=== PATIENT | female | born 1995 | race Caucasian/White ===

== ENCOUNTER 2017-07-16 10:54 | Emergency (ER) | payer MEDICAID, SELFPAY ==
[2017-07-16] MEDS ORDERED: Metoclopramide HCl 10 MG/2 ML VIAL ONE (11:44)
[2017-07-16 11:45] LABS: #Lymphocytes 0.4 thou/uL (1.20-3.40); #Monocytes 0.7 thou/uL (0.11-0.59); #Neutrophils 4.3 thou/uL (1.40-6.50); %Basophils 0.5 % (0.0-1.0); %Eosinophils 0.1 % (0.0-10.0); %Lymphocytes 8.2 % (21.0-51.0); %Monocytes 12.1 % (0.0-10.0); %Neutrophils 79.1 % (42.0-75.0); Hemoglobin 14.2 g/dL (12.0-16.0); Mean Corpuscular HGB CONC 34.4 g/dL (32.0-36.0); Mean Corpuscular Hemoglobin 30.4 pg (27.0-31.0); Mean Corpuscular Volume 88.3 fl (81.0-99.0); Mean Platelet Volume 8.6 fL (7.4-10.4); Platelet Count 204 thou/uL (130-400); RBC Distribution Width 11.5 % (11.5-14.5); Red Blood Cell (RBC) Count 4.68 mill/uL (4.20-5.40); White Blood Cell (WBC) Count 5.4 thou/uL (4.8-10.8)
[2017-07-16 11:46] LABS: Bilirubin Negative (Negative); Blood, Urine Trace (Negative); Clarity Hazy (Clear); Glucose, Urine (Dipstick) Negative (Negative); Leukocyte Negative (Negative); Nitrite Negative (Negative); Protein, Urine (Dipstick) 30 mg/dL (Neg-Trace); Specific Gravity, Urine 1.028 (1.002-1.036); Urobilinogen 0.2 mg/dL (0.2-1.0)
[2017-07-16 11:48] LABS: Bacteria/HPF 2+ HPF (None Seen); RBC/HPF 0-3 HPF (0-3); WBC/HPF None Seen HPF (0-3)
[2017-07-16 12:00] LABS: ALT (SGPT) 12 U/L (8-55); AST (SGOT) 17 U/L (5-34); Albumin 4.4 g/dL (3.5-5.0); Alkaline Phosphatase 52 U/L (40-150); Anion Gap 17 mmol/L (10-20); BUN (Urea Nitrogen) 10 mg/dL (7.0-18.7); Bilirubin, Total 0.3 mg/dL (0.2-1.2); Calc. Creatinine Clearance 0 mL/min (70-130); Calcium 9.8 mg/dL (7.8-10.44); Carbon Dioxide 23 mmol/L (22-29); Chloride 100 mmol/L (98-107); Estimated GFR-MDRD Greater than 90; Globulin 3.2 g/dL (2.4-3.5); Glucose 127 mg/dL (70-105); Lipase 18 U/L (8-78); Potassium 3.5 mmol/L (3.5-5.1); Protein, Total 7.6 g/dL (6.0-8.3); Sodium 136 mmol/L (136-145)
--- NOTE | 2017-07-16 14:13 | ULT ---
OB ULTRASOUND: Date: 07/16/17 HISTORY: Evaluation for ectopic. FINDINGS: Real-time images of the pelvis show a single viable intrauterine . heart rate is 163 b eats/minute. The crown-rump length measurement is 2.1 cm, corresponding to 8 weeks/5 days. Gestationa l sac measurement is 3.8 cm, corresponding to 9 weeks/1 day. I do not see any definite signs of any s ubchorionic bleed. Placental position is difficult to assess at this stage. The right and left adnexal regions are unremarkable. DOPPLER EVALUATION WITH SPECTRAL ANALYSIS: Normal flow is shown to the adnexa. IMPRESSION: Single viable intrauterine . Measurements corresponding to a gestational age of 9 weeks/0 da ys. Estimated date of delivery is 02/18/18. POS: [facility]
[2017-07-19 22:46] LABS: Chlamydia by PCR Not Detected (NotDetected); GC by PCR Not Detected (NotDetected)
== END 2017-07-16 13:47 | disposition home or self-care (01) ==
LOC: SCSER 10:54
DX: O99.89 Other specified diseases and conditions complicating pregnancy, childbirth and the puerperium (principal); M54.5 Low back pain; R10.31 Right lower quadrant pain; Z3A.09 9 weeks gestation of pregnancy
CPT/HCPCS: 76815; 76856; 80053; 81003; 81015; 83690; 84702; 85025; 87480; 87491; 87510; 87591; 87660; 96365; J2765